=== PATIENT | female | born 1965 | race Caucasian/White ===

== ENCOUNTER 2022-05-22 09:45 | Outpatient (RCR) | payer BC, SELFPAY | END 2022-10-31 23:59 | disposition home or self-care (01) | PROVIDERS: Visit Provider Internal Medicine | DX: C32.1 Malignant neoplasm of supraglottis (principal); Z51.89 Encounter for other specified aftercare | CPT/HCPCS: 97110; 97140; 97165; 97535; X5282 ==

== ENCOUNTER 2022-05-23 10:19 | Outpatient (CLI) | payer BC, SELFPAY ==
--- NOTE | 2022-05-23 10:15 | CRLHL7_ITS ---
For Patients: As a result of the Century Cures Act, medical imaging exams and procedure reports are released immediately into your electronic medical record. You may view this report before your referring provider. If you have questions, please contact your health care provider. INDICATION: SUPRAGLOTTIC LARYNX CA SP CHEM/RAD TECHNIQUE: Modified barium swallow. Fluoroscopic time 1 minutes 44 seconds. FINDINGS/IMPRESSION: Minimal spontaneous laryngeal penetration occurred without aspiration. No obstruction. Normal epiglottis retroversion. No retropharyngeal soft tissue swelling. Dictated by Arnaldo Aguilera MD @ 05/23/2022 12:15:13 PM (Electronically Signed)
== END 2022-05-23 10:20 | disposition home or self-care (01) ==
PROVIDERS: Visit Provider Internal Medicine
DX: C32.9 Malignant neoplasm of larynx, unspecified (principal)
CPT/HCPCS: 74230; 92611